=== PATIENT | male | born 1940 | race Caucasian/White ===

== ENCOUNTER → 2018-10-12 09:19 | Outpatient (CLI) | payer MEDICARE, SELFPAY ==
[2015-04-21 07:43] VITALS: BMI 26.4
[2018-10-12 09:44] LABS: International Normalized Ratio 2.8; Prothrombin Time (Protime)PT. 29.7 SECONDS (11.7-14.9)
== END ==
PROVIDERS: Family Provider Internal Medicine; PCP Internal Medicine; Referring Provider Family Medicine; Visit Provider Family Medicine
DX: I48.92 Unspecified atrial flutter (principal)
CPT/HCPCS: 85610

== ENCOUNTER → 2018-10-22 09:53 | Outpatient (CLI) | payer MEDICARE, SELFPAY ==
[2015-04-21 07:43] VITALS: BMI 26.4
[2018-10-22 10:25] LABS: International Normalized Ratio 3.3; Prothrombin Time (Protime)PT. 34.1 SECONDS (11.7-14.9)
== END ==
PROVIDERS: Family Provider Internal Medicine; PCP Internal Medicine; Referring Provider Family Medicine; Visit Provider Family Medicine
DX: I48.92 Unspecified atrial flutter (principal)
CPT/HCPCS: 85610

== ENCOUNTER → 2019-04-09 11:59 | Outpatient (CLI) | payer MEDICARE, OTHER, SELFPAY ==
[2019-03-27 08:29] VITALS: BMI 23.8
[2019-04-09 12:24] LABS: International Normalized Ratio 2.8; Prothrombin Time (Protime)PT. 29.9 SECONDS (11.7-14.9)
== END ==
PROVIDERS: Family Provider Family Medicine; PCP Family Medicine; Referring Provider Family Medicine; Visit Provider Family Medicine
DX: I48.20 Chronic atrial fibrillation, unspecified (principal); I48.4 Atypical atrial flutter
CPT/HCPCS: 85610

== ENCOUNTER → 2019-04-24 09:29 | Outpatient (CLI) | payer MEDICARE, OTHER, SELFPAY ==
[2019-03-27 08:29] VITALS: BMI 23.8
[2019-04-24 09:41] LABS: International Normalized Ratio 2.6; Prothrombin Time (Protime)PT. 27.7 SECONDS (11.7-14.9)
== END ==
PROVIDERS: Family Provider Family Medicine; PCP Family Medicine; Visit Provider Family Medicine
DX: I48.92 Unspecified atrial flutter (principal)
CPT/HCPCS: 85610

== ENCOUNTER 2020-04-01 13:33 | Emergency (ER) | payer MEDICARE, OTHER, SELFPAY ==
[2019-12-03 09:31] VITALS: BMI 23.1
[2020-04-01 13:34] VITALS: BP 149/67; PULSE 82; RESP 18; TEMP 35.7; O2SAT 97; BMI 23.9
--- NOTE | 2020-04-01 14:16 | ED.DCSUM_ITS ---
History of Present Illness Chief Complaint: Complaint Informant: Patient Narrative: 79-year-old male presents with 20 hours of inability urinate. Patient states he is uncircumcised and has been unable to retract the foreskin. He states that he had seen a urologist several years ago and they gave him exercises to do. Unfortunately now he is unable to urinate. He tried to find somebody to see him today but was unable to have successfully came to emergency. He states he feels a lot of pressure at the tip of his penis to urinate. - Past Medical History (1) Atypical atrial flutter Status: Chronic (2) Essential (primary) hypertension Status: Chronic (3) History of hyperlipidemia Status: Chronic (4) Nonobstructive atherosclerosis of coronary artery Status: Chronic (5) Nonrheumatic mitral (valve) insufficiency Status: Chronic (6) Paroxysmal atrial fibrillation Status: Chronic (7) Right bundle branch block (RBBB) Status: Chronic (8) Secondary pulmonary arterial hypertension Status: Chronic Past Medical History - Allergies and Home Meds Allergies/Adverse Reactions: Allergies No Known Allergies Allergy (Verified 04/01/20 13:35) Primary Care Physician: Nic Castro MD [Primary Care Provider] - Prior records reviewed: Yes Surgical History: noncontributory Lives: Spouse/ Significant Other Smoking Status: Never smoker Drugs: None Review of Systems General: Denies: Chills, Fever, Sweats Eyes: Denies: Visual changes - bilaterally, Diplopia ENT: Denies: Rhinorrhea, Sore throat Cardiovascular: Denies: Chest pain, Palpitations Respiratory: Denies: Dyspnea, Cough, Dyspnea on exertion Gastrointestinal: Denies: Abdominal pain, Nausea, Vomiting, Diarrhea, Melena, Hematochezia Genitourinary: Reports: - - Inability to urinate. Denies: Dysuria, Hematuria, Frequency Musculoskeletal: Denies: Back pain, Extremity Pain Skin: Denies: Rash, Wounds Neurological: Denies: Headache, Weakness, Numbness Physical Exam Vital Signs/Narrative: Vital Signs Temp Pulse Resp BP Pulse Ox 04/01/20 13:34 96.2 F L 82 18 149/67 H 97 Inital Vital Signs reviewed: Yes General: Well nourished, Well developed, No Acute Distress Head: Normocephalic, Atraumatic Eyes: Perrl, EOMI ENT: Moist mucous membranes, No rhinorrhea Neck: Supple, Nontender Cardiovascular: Regular rate, Regular rhythm, No murmurs Respiratory: No distress, CTA bilaterally, Chest nontender Abdomen: Soft, Nondistended, Normal bowel sounds, - - Tender palpation over the bladder : - - Patient's foreskin is unable to be retracted. I cannot visualize the urethra. There is no leakage of urine. Back: Nontender, Normal Inspection Extremities: Nontender, No edema Skin: Normal color, No rash Neurological: Alert, Oriented x3, Cranial nerves II-XII grossly intact, Normal Strength, Normal Sensation Psychological: Normal affect, Normal Mood Diagnostic/Tx/Re-eval Laboratory Last Values WBC 8.2 K/mm3 (4.4-11.0) 04/01/20 14:30 RBC 4.62 M/mm3 (4.6-6.2) 04/01/20 14:30 Hgb 14.8 g/dL (13.0-16.5) 04/01/20 14:30 Hct 44.3 % (40-54) 04/01/20 14:30 MCV 95.9 fL (80-94) H 04/01/20 14:30 MCH 32.0 pg (27.0-32.0) 04/01/20 14:30 MCHC 33.4 g/dL (32-36) 04/01/20 14:30 RDW Std Deviation 46.4 fl (35.1-43.9) H 04/01/20 14:30 RDW Coeff of Lexus 13.2 % (11.6-14.6) 04/01/20 14:30 Plt Count 186 K/mm3 (150-450) 04/01/20 14:30 MPV 10.2 fl (6.2-12.0) 04/01/20 14:30 Immature Gran % (Auto) 0.600 % (0.0-0.9) 04/01/20 14:30 Neut % (Auto) 73.2 % (47-70) H 04/01/20 14:30 Lymph % (Auto) 16.2 % (19-41) L 04/01/20 14:30 Trigg % (Auto) 6.0 % (0-10) 04/01/20 14:30 Eos % (Auto) 3.8 % (0-5) 04/01/20 14:30 Baso % (Auto) 0.2 % (0-1) 04/01/20 14:30 Absolute Neuts (auto) 6.0 X10^3/uL (2.0-7.7) 04/01/20 14:30 Absolute Lymphs (auto) 1.33 X10^3/uL (0.83-4.51) 04/01/20 14:30 Nucleated RBC % 0 % (0-5) 04/01/20 14:30 PT 22.2 SECONDS (11.7-14.9) H 04/01/20 14:30 INR 2.0 04/01/20 14:30 Sodium 140 mmol/L (136-145) 04/01/20 14:30 Potassium 4.2 mmol/L (3.5-5.1) 04/01/20 14:30 Chloride 106 mmol/L (98-107) 04/01/20 14:30 Carbon Dioxide 30.0 mmol/L (21.0-32.0) 04/01/20 14:30 Anion Gap 4 (5-15) L 04/01/20 14:30 BUN 28 mg/dL (7-18) H 04/01/20 14:30 Creatinine 1.25 mg/dL (0.70-1.30) 04/01/20 14:30 Estim Creat Clear Calc 46.35 ml/min 04/01/20 14:30 Est GFR (MDRD) Af Amer 71 mL/min (>60) 04/01/20 14:30 Est GFR (MDRD) Non-Af 59 mL/min (>60) L 04/01/20 14:30 BUN/Creatinine Ratio 22.4 RATIO (10-20) H 04/01/20 14:30 Glucose 135 mg/dL (74-106) H 04/01/20 14:30 Calcium 9.5 mg/dL (8.5-10.1) 04/01/20 14:30 - Medical Decision Making He has a distended bladder. He is unable to urinate. Our urologist is out of town until April. Basic blood work shows a normal creatinine. INR is 2.2. Normal white count. As I do not have the ability to definitively treat him here I am looking to transfer him. [facility] was contacted initially. He has been accepted by Dr. Zapata. ED Disposition - Plan for ED Patient: Disposition: [facility] Diagnosis: acute urinary retention due to phimosis Referrals: Nic Castro MD [Primary Care Provider] -
[2020-04-01 14:42] VITALS: BP 147/95; PULSE 87; RESP 20; TEMP 37.3; O2SAT 98
[2020-04-01 14:46] LABS: Absolute Lymphocyte Count 1.33 X10^3/uL (0.83-4.51); Basophil# 0.02 X10^3/uL; Basophil% 0.2 % (0-1); Eosinophil# 0.31 X10^3/uL; Eosinophils% 3.8 % (0-5); Hematocrit 44.3 % (40-54); Hemoglobin 14.8 g/dL (13.0-16.5); Lymphocyte # 1.33 X10^3/ul (4.0); Lymphocyte % 16.2 % (19-41); Mean Corp Hgb Conc 33.4 g/dL (32-36); Mean Corpuscular Volume 95.9 fL (80-94); Mean Platelet Vol. 10.2 fl (6.2-12.0); Monocyte# 0.49 X10^3/uL; NRBC Flagged by Analyzer 0 % (0-5); Neutrophil # 6.02 X10^3/uL (2.7-7.7); Neutrophil % 73.2 % (47-70); Platelet Count 186 K/mm3 (150-450); RBC Distribution Width CV 13.2 % (11.6-14.6); RBC Distribution Width SD 46.4 fl (35.1-43.9); Red Blood Count 4.62 M/mm3 (4.6-6.2); White Blood Count 8.2 K/mm3 (4.4-11.0)
[2020-04-01 14:49] LABS: Prothrombin Time (Protime)PT. 22.2 SECONDS (11.7-14.9)
[2020-04-01 14:51] LABS: Anion Gap 4 (5-15); BUN 28 mg/dL (7-18); BUN/Creat Ratio 22.4 RATIO (10-20); Calcium,Total 9.5 mg/dL (8.5-10.1); Chloride 106 mmol/L (98-107); Creatinine, Serum 1.25 mg/dL (0.70-1.30); EST Glomerular Filtration Rate 59 mL/min (>60); Est Glom Filt Rate - Afr Amer 71 mL/min (>60); Estimated Creatinine Clearance 46.35 ml/min; Glucose 135 mg/dL (74-106); Potassium 4.2 mmol/L (3.5-5.1); Sodium Level 140 mmol/L (136-145)
[2020-04-01 16:12] VITALS: BP 135/71; PULSE 70; RESP 16; TEMP 36.1; O2SAT 97
--- NOTE | 2020-04-01 16:33 | NURSING ---
CALLED [facility], ETA IS 30 MIN
[2020-04-01 17:07] VITALS: BP 129/75; PULSE 79; RESP 18; O2SAT 99
== END 2020-04-01 17:07 | disposition short-term general hospital (02) ==
PROVIDERS: Emergency Provider Emergency Medicine; PCP Family Medicine
DX: R33.8 Other retention of urine (principal); N47.1 Phimosis
CPT/HCPCS: 80048; 85025; 85610; 99285

== ENCOUNTER → 2020-06-22 10:02 | Outpatient (CLI) | payer MEDICARE, OTHER, SELFPAY ==
[2020-06-22 10:35] LABS: Prothrombin Time (Protime)PT. 21.8 SECONDS (11.7-14.9)
== END ==
PROVIDERS: PCP Family Medicine; Visit Provider Family Medicine
DX: I48.20 Chronic atrial fibrillation, unspecified (principal)
CPT/HCPCS: 85610

== ENCOUNTER → 2020-09-07 09:30 | Outpatient (CLI) | payer MEDICARE, OTHER, SELFPAY ==
[2020-09-07 09:48] LABS: International Normalized Ratio 2.2; Prothrombin Time (Protime)PT. 23.2 SECONDS (11.7-14.9)
== END ==
PROVIDERS: PCP Family Medicine; Referring Provider Family Medicine; Visit Provider Family Medicine
DX: I48.20 Chronic atrial fibrillation, unspecified (principal)
CPT/HCPCS: 85610

== ENCOUNTER → 2020-09-11 15:21 | Outpatient (CLI) | payer MEDICARE, OTHER, SELFPAY ==
[2020-09-11 14:12] VITALS: BMI 25.8
--- NOTE | 2020-09-11 15:24 | RAD_ITS ---
STUDY: X-RAY CHEST REASON FOR EXAM: Male, 79 years old. dyspnea on exertion TECHNIQUE: 2 views COMPARISON: None. FINDINGS: Discrete bibasilar fibrotic changes greater at the right lung base with an elevation of the right diaphragm. Otherwise negative for major consolidation, focal atelectasis or pleural effusion. Mild cardiomegaly. Status post prior midline sternotomy. Normal visualized pulmonary arteries. There is atherosclerotic calcification of the aortic arch with tortuosity. There are diffuse degenerative changes of the visualized thoracic spine. Status post right shoulder arthroplasty. Multiple prior healed right rib fractures. There is no demonstrated abnormality of the visualized soft tissue structures of the upper abdomen. RAD/Chest PA and Lateral IMPRESSION: Chronic fibrotic bibasilar lung changes right greater than left with an elevated right diaphragm. Mild cardiomegaly status post prior midline sternotomy without evidence of pulmonary venous congestion or pleural effusion. Atherosclerotic changes of the thoracic aorta. Status post right shoulder arthroplasty. Multiple prior healed right rib fractures. Electronically Signed: Irma Beebe MD at 16:26 EDT , Service support ,
[2020-09-11 17:01] LABS: BNP,B-Type NATRIURETIC PEPTIDE 48.3 pg/mL (0-100)
== END ==
PROVIDERS: PCP Family Medicine; Referring Provider Physician Assistant Medical; Visit Provider Physician Assistant Medical
DX: R06.00 Dyspnea, unspecified (principal); I48.0 Paroxysmal atrial fibrillation; I10 Essential (primary) hypertension; Z98.890 Other specified postprocedural states
CPT/HCPCS: 36415; 71046; 83880

== ENCOUNTER → 2020-09-25 07:56 | Outpatient (CLI) | payer MEDICARE, OTHER, SELFPAY ==
[2020-09-11 14:12] VITALS: BMI 25.8
--- NOTE | 2020-09-25 07:58 | ECHOD_ITS ---
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 Exam performed in department. Left Ventricle Normal LV size. Mild concentric left ventricular hypertrophy. Left ventricular systolic function is normal. The estimated ejection fraction is 55 %. No regional wall motion abnormalities noted. Right Ventricle Normal RV size. Normal systolic function. Atria The left atrium is moderately enlarged. Normal right atrium. Mitral Valve Trivial eccentric mitral valve insufficiency. Status post mitral valve repair with annuloplasty ring. Tricuspid Valve Normal tricuspid valve. Mild to moderate (1-2+) tricuspid valve insufficiency. Pulmonary artery systolic pressure is 56 mmHg. Moderate pulmonary hypertension. Aortic Valve Trisinus/trileaflet aortic valve. Trivial aortic valve insufficiency. Pulmonic Valve Normal pulmonic valve. Mild (1+) pulmonic valve insufficiency. Great Vessels Normal aortic root. The pulmonary artery is normal size. Pericardium/Pleural No pericardial effusion. MMode/2D Measurements & Calculations LVIDd: 4.4 cm IVSd: 1.3 cm LA dimension: 5.3 cm LVIDs: 2.8 cm LVPWd: 1.3 cm RVDd: 5.2 cm FS: 37.2 % LAV(MOD-bp): 106.8 ml LA A4 area: 29.1 cm2 RA A4 area: 19.8 cm2 LAV(MOD-bp) Indexed: 54.7 ml/m2 LAV(MOD-sp2): 103.7 ml LAV(MOD-sp4): 103.4 ml Doppler Measurements & Calculations MV E max maurilio: 194.9 cm/sec Lat Peak E' Maurilio: 5.3 cm/sec Med Peak E' Maurilio: 7.2 cm/sec E/E' lat: 36.8 E/E' med: 27.0 Ao V2 max: 115.4 cm/sec AI max maurilio: 406.9 cm/sec LV V1 max: 104.2 cm/sec Ao max P.3 mmHg AI max P.2 mmHg LV V1 max P.3 mmHg AI dec slope: 202.9 cm/sec2 AI P1/2t: 587.3 msec PA V2 max: 105.0 cm/sec TR max maurilio: 357.9 cm/sec TR max P.2 mmHg ECHO/Echo Complete Interpretation Summary Status post mitral valve repair with annuloplasty ring. Normal LV size. Left ventricular systolic function is normal. The estimated ejection fraction is 55 %. Mild concentric left ventricular hypertrophy. Pulmonary artery systolic pressure is 56 mmHg. Moderate pulmonary hypertension. Ordering Physician: Rosalee Mcgrath Referring Physician: Babatunde Castro Performed By: Pio Novoa RCS
== END ==
PROVIDERS: PCP Family Medicine; Referring Provider Physician Assistant Medical; Visit Provider Physician Assistant Medical
DX: I34.0 Nonrheumatic mitral (valve) insufficiency (principal); R06.00 Dyspnea, unspecified; I48.0 Paroxysmal atrial fibrillation; I10 Essential (primary) hypertension; Z98.890 Other specified postprocedural states
CPT/HCPCS: 93306

== ENCOUNTER → 2020-09-30 08:51 | Outpatient (CLI) | payer MEDICARE, OTHER, SELFPAY ==
[2020-09-11 14:12] VITALS: BMI 25.8
== END ==
PROVIDERS: PCP Family Medicine; Referring Provider Physician Assistant Medical; Visit Provider Physician Assistant Medical
DX: R06.00 Dyspnea, unspecified (principal); I48.0 Paroxysmal atrial fibrillation; R00.1 Bradycardia, unspecified
CPT/HCPCS: 93225; 93226

== ENCOUNTER → 2021-09-08 | Outpatient (CLI) | payer MEDICARE, OTHER, SELFPAY ==
--- NOTE | 2021-09-08 13:48 | STRESSREP_ITS ---
Stress Test Report Pharmacologic myocardial perfusion stress test. 80-year-old male with a history of dyspnea on exertion. Stress protocol: Resting EKG demonstrates atrial fibrillation with a rate of 55 bpm and incomplete right bundle branch block is noted. 0.4 mg of regadenoson was infused per usual protocol followed by rapid intravenous saline flush injection continuous EKG monitoring was performed. The maximum heart rate was 80 bpm which was 57% of max impact at heart rate the maximum workload was 1 metabolic equivalents. At rest there were no ST or T wave changes noted to suggest abnormal flow reserve and at peak infusion nonspecific ST changes were noted with did not meet the criteria for ischemia. No clinical angina was noted. The final blood pressure was 142/82 mmHg. Myocardial perfusion protocol. 12.0 mCi of technetium 99m sestamibi was injected at rest. 0.4 mg of regadenoson was infused per usual protocol. At peak infusion 34.5 mCi of technetium 99m sestamibi was injected stress images were obtained stress and rest images were reconstructed and compared in the short axis vertical long and horizontal long axis. Gated images were also obtained to Perfusion SPECT analysis: Review of the stress images demonstrate normal uptake of tracer noted in all areas of the myocardium. The resting images similarly demonstrated normal u ptake of tracer noted in all areas of the myocardium. No areas of reversibility are noted to suggest ischemia. Gated SPECT analysis: The gated ejection fraction is 70%. Conclusion: Normal pharmacologic myocardial perfusion stress test. Preserved ejection fraction.
== END | disposition home or self-care (01) ==
PROVIDERS: PCP Family Medicine; Referring Provider Internal Medicine Cardiovascular Disease; Visit Provider Internal Medicine Cardiovascular Disease
DX: R06.00 Dyspnea, unspecified (principal)
CPT/HCPCS: 78452; 93017; A9500; A4216; J2785

== ENCOUNTER → 2021-09-17 | Outpatient (CLI) | payer MEDICARE, OTHER, SELFPAY | END | disposition home or self-care (01) | LOC: PSN 08:56 | PROVIDERS: PCP Family Medicine; Referring Provider Internal Medicine Cardiovascular Disease; Visit Provider Internal Medicine Cardiovascular Disease | DX: I48.19 Other persistent atrial fibrillation (principal) | CPT/HCPCS: 93225; 93226 ==

== ENCOUNTER → 2022-02-14 | Outpatient (CLI) | payer MEDICARE, OTHER, SELFPAY ==
[2022-02-14 13:27] LABS: International Normalized Ratio 2.2; Prothrombin Time (Protime)PT. 24.4 SECONDS (11.7-14.9)
== END | disposition home or self-care (01) ==
LOC: LABSPEC 13:09
PROVIDERS: PCP Family Medicine; Visit Provider Family Medicine
DX: I48.20 Chronic atrial fibrillation, unspecified (principal)
CPT/HCPCS: 85610

== ENCOUNTER → 2022-02-15 | Outpatient (CLI) | payer MEDICARE, OTHER, SELFPAY ==
[2022-02-15 10:09] LABS: International Normalized Ratio 2.3; Prothrombin Time (Protime)PT. 24.6 SECONDS (11.7-14.9)
== END | disposition home or self-care (01) ==
PROVIDERS: PCP Family Medicine; Referring Provider Family Medicine; Visit Provider Family Medicine
DX: I48.20 Chronic atrial fibrillation, unspecified (principal)
CPT/HCPCS: 85610

== ENCOUNTER → 2022-03-23 | Outpatient (CLI) | payer MEDICARE, OTHER, SELFPAY ==
[2022-03-23 10:57] LABS: International Normalized Ratio 2.2; Prothrombin Time (Protime)PT. 23.7 SECONDS (11.7-14.9)
== END | disposition home or self-care (01) ==
LOC: LABSPEC 10:36
PROVIDERS: PCP Family Medicine; Visit Provider Family Medicine
DX: Z51.81 Encounter for therapeutic drug level monitoring (principal); Z79.01 Long term (current) use of anticoagulants
CPT/HCPCS: 85610

== ENCOUNTER 2023-09-14 17:29 | Emergency (ER) | payer MEDICARE, SELFPAY ==
[2023-09-14 17:30] VITALS: PULSE 84; RESP 18; TEMP 36.5; O2SAT 98
--- NOTE | 2023-09-14 17:58 | RAD_ITS ---
STUDY: X-RAY - RIGHT KNEE REASON FOR EXAM: Male, 82 years old. Injury/Pain TECHNIQUE: 3 view(s) of the knee. COMPARISON: None. FINDINGS: Normal visualized distal femur. Normal visualized proximal tibia and fibula. Normal proximal tibiofibular articulation. Chondrocalcinosis of the menisci. Slight lateral subluxation of the patella. Suprapatellar ossific/calcific radiodensities. Slight lateral subluxation of the tibia. There is mild degenerative arthrosis of the medial femorotibial compartment. There is mild degenerative arthrosis of the lateral femorotibial compartment. There is moderate degenerative arthrosis of the patellofemoral articulation. Moderate suprapatellar effusion. RAD/Knee 4 or More Views IMPRESSION: Moderate effusion. Suprapatellar ossific densities. Moderate degenerative changes as above. Electronically Signed: Brannon Martínez MD at 19:06 EDT ,
--- NOTE | 2023-09-14 17:59 | EDS_ITS ---
HPI History of Present Illness HPI Narrative: Patient presents with right knee pain that began after a fall 2 days ago. Patient states he lost his balance and fell forward. Patient states he injured his right knee at that time. Patient states his pain is worse with bending his knee. Patient denies any paresthesias or weakness. Patient describes his pain as dull. Patient states he has also been having some pain in his right foot over the past couple weeks. Patient states it is worse with weightbearing. Patient does not remember any trauma to his foot. Patient denies any other injuries. Chief Complaint: Lower Extremity Injury Informant: patient Occured/Mechanism Mechanism/Context: Yes fall Onset/Context/Timing Onset: Days (2) Context: Sudden Onset Timing: Continuous Quality of Pain: Dull Location: Right knee Worsened by: Bending Relieved by: Rest Associated Symptoms Associated Symptoms: Negative for Parasthesia, Weakness or Loss of Funtion [facility] Medical History Subconjunctival hemorrhage of left eye Atypical atrial flutter Secondary pulmonary arterial hypertension Osteoarthritis Hypothyroidism Hypertrophy of prostate without urinary obstruction Bradycardia Right bundle branch block (RBBB) Essential (primary) hypertension History of hyperlipidemia Nonobstructive atherosclerosis of coronary artery Nonrheumatic mitral (valve) insufficiency Home Medications ?Medication ?Instructions ?Recorded ?Last Taken ?Type levothyroxine 88 mcg tablet 88 mcg PO DAILY 04/13/15 04/21/15 History 88 MCG lisinopril 5 mg tablet 2.5 mg PO QHS 04/13/15 04/20/15 History 5 MG warfarin 4 mg tablet See Rx Instructions PO DAILY 10/23/20 Unknown History metoprolol succinate 50 mg 50 mg PO DAILY #90 tabs 09/28/21 Unknown Rx tablet,extended release 24 hr tamsulosin 0.4 mg capsule 0.4 mg PO QHS 08/22/22 Unknown History hydrocodone-acetaminophen 5-325mg 1 tab PO Q6H PRN PRN Pain 3 days 09/14/23 Unknown Rx 5mg-325mg #10 TABLETS trospium 60 mg capsule,extended 60 mg PO DAILY overactive bladder 09/14/23 Unknown History release 24 hr Allergy/AdvReac Type Severity Reaction Status Date / Time No Known Allergies Allergy Verified 09/14/23 17:30 Family History Mother Heart disease Father Cancer leukemia Surgical History History of reverse total replacement of right shoulder joint H/O bilateral inguinal hernia repair History of cardioversion (12/13/12) History of left heart catheterization (02/23/07) History of mitral valve repair (02/28/07) Social History Smoking Status: Never smoker alcohol intake: never substance use type: does not use caffeine: No ROS ROS ED Constitutional Constitutional ED: Denies chills or fever(s) Eyes Eyes: Denies blurry vision or change in vision ENT ENT ED: Denies rhinorrhea or sore throat Cardiovascular Cardiovascular: Denies chest pain or palpitations Respiratory/Chest Respiratory/Chest: Denies cough or dyspnea Gastrointestinal Gastrointestinal: Denies nausea or vomiting Genitourinary Genitourinary ED: Denies dysuria or hematuria Musculoskeletal Musculoskeletal: Reports back pain; Denies neck pain Integumentary Denies abscess or rash Neurologic Neurologic: Denies headache(s) or weakness Allergic/Immunologic Allergic/Immunologic ED: Denies mouth swelling or urticaria EXAM Physical Exam Const Vital Signs: 09/14/23 17:30 09/14/23 19:40 Temperature 97.7 F L 99.6 F H Temperature Source Temporal Oral Pulse Rate 84 75 Respiratory Rate 18 16 Blood Pressure 129/75 H Blood Pressure Mean 93 Pulse Ox 98 98 Oxygen Delivery Method Room Air Room Air Positive well nourished and well developed General Appearance ED: well developed and NAD HEENT Reports moist mucous membranes Neck full ROM and supple Extremity Extremity Narrative: There is tenderness and an effusion over the right knee. Range of motion was limited in all motions of the right knee secondary to pain. Patient is unable to extend his knee and hold his lower leg off of the bed. There is no obvious deformity noted. There is also mild tenderness over the dorsum of the right foot. There are some edema noted. There is no deformity noted. Pedal pulses are equal bilaterally. Sensation was intact to light touch bilaterally in the lower extremities. Neuro oriented x3, CN's II-XII intact bilaterally, moves all extremities and no sensory deficits noted Sensorium / Orientation: alert Motor Exam: strength 5/5 throughout MDM MDM MDM Narrative Medical decision making narrative: Differential diagnosis includes patella fracture, quadricep tendon tear, internal derangement of the right knee, foot fracture, dislocation, and sprain. X-rays of the right knee and right foot will be obtained to assess for fracture and dislocation. Radiography Diagnostic Testing: Clinical Impression(s) from Imaging Studies Knee X-Ray 09/14/23 17:58 IMPRESSION: Moderate effusion. Suprapatellar ossific densities. Moderate degenerative changes as above. Electronically Signed: Brannon Martínez MD at 19:06 EDT , Foot X-Ray 09/14/23 18:05 IMPRESSION: Questionable avulsion fracture posterior process of the talus versus dystrophic calcification. Other incidental degenerative findings as above. Electronically Signed: Brannon Martínez MD at 19:02 EDT Reading Location ID and State: [employer] / [place] Tel , Service support , X-rays of the right knee were obtained. There are 4 views. On my independent interpretation, there is no acute fracture noted. There are degenerative changes noted. There is a moderate effusion. Radiologist also interpreted the x-rays and agrees. X-rays of the right foot were obtained. There are 3 views. There is a questionable avulsion fracture of the posterior process of the talus. There are degenerative changes noted. Radiologist also interpreted the x-rays and agrees. Treatment and Re-Evaluation Narrative: Patient was given a dose of [place] here. Patient was still unable to extend his knee against gravity. Case was discussed with Dr. Balbir Everett from orthopedics. He recommended placing the patient in a knee immobilizer. Patient states he has crutches at home. He wants the patient to call his office tomorrow to set up a follow-up appointment. He states that the patient would also need to follow-up with his primary care physician and automated access systems technician to come off of his Coumadin if he would want surgery to repair his quadricep tendon. Patient was given a prescription for [place]. Patient was instructed to use ice to his right knee. Patient was instructed to return if worse in any way. Patient understood and was agreeable with the plan. All questions were answered. Discharge Plan Triage Chief Complaint: Lower Extremity Injury ED Provider: Rolly Ruiz Dx/Rx/DC Orders Clinical Impression: Quadriceps tendon rupture, Fall, Avulsion fracture of right talus Instructions: ED Quadriceps Tendon Rupture Prescriptions: New hydrocodone-acetaminophen 5-325 mg tablet 1 tab PO Q6H PRN PRN (Reason: Pain) 3 Days Qty: 10 0RF No Action tamsulosin 0.4 mg capsule 0.4 mg PO QHS levothyroxine 88 MCG tablet 88 mcg PO DAILY Patient Comments: thyroid lisinopril 5 MG tablet 2.5 mg PO QHS Patient Comments: blood pressure warfarin 4 mg tablet See Rx Instructions PO DAILY Rx Instructions: 2 mg on Mondays and Fridays, 4 mg all other day or as directed for dose changes PO daily; Managed by Dr. Jaramillo trospium 60 mg capsule,extended release 24hr 60 mg PO DAILY metoprolol succinate 50 mg tablet extended release 24 hr 50 mg PO DAILY Qty: 90 3RF Primary Care Provider: Nic Castro Referrals: Nic Castro MD [Primary Care Provider] - 3-5 Days Balbir Everett MD [Med Staff - Active Staff] - As soon as possible (Call tomorrow to schedule an appointment) Print Language: Hungarian Disposition Disposition: Home, Self Care
--- NOTE | 2023-09-14 18:05 | RAD_ITS ---
STUDY: X-RAY - RIGHT FOOT CLINICAL: Male, 82 years old. Injury/Pain TECHNIQUE: 3 view(s) of the foot. COMPARISON: None. FINDINGS: Normal talus, calcaneus, and tarsal bones. Normal visualized subtalar, talonavicular, calcaneocuboid, tarsal and tarsometatarsal articulations. Spurring dorsal midfoot. Normal metatarsi. Normal metatarsophalangeal joint of the great toe. Normal tibial and fibular sesamoid bones. Normal interphalangeal joint of the great toe. Normal phalanges of the great toe. Cystic change distal phalanx digit. Ossific density posterior to the talus. Normal second through fifth metatarsophalangeal joints. Normal interphalangeal joints and phalanges of the lesser toes. The soft tissue structures are unremarkable. RAD/Foot min 3 Views IMPRESSION: Questionable avulsion fracture posterior process of the talus versus dystrophic calcification. Other incidental degenerative findings as above. Electronically Signed: Brannon Martínez MD at 19:02 EDT ,
[2023-09-14] MEDS: HYDROcodone Bitartrate/Apap 5/325 Tablet PO (19:36)
[2023-09-14 19:39] VITALS: BMI 23.8
[2023-09-14 19:40] VITALS: BP 129/75; PULSE 75; RESP 16; TEMP 37.6; O2SAT 98
[2023-09-14 22:24] VITALS: BP 129/75; PULSE 75; RESP 16; TEMP 37.6; O2SAT 98
== END 2023-09-14 22:30 | disposition home or self-care (01) ==
PROVIDERS: Emergency Provider Emergency Medicine; PCP Family Medicine; Visit Provider Emergency Medicine
DX: S76.111A Strain of right quadriceps muscle, fascia and tendon, initial encounter (principal); S92.151A Displaced avulsion fracture (chip fracture) of right talus, initial encounter for closed fracture; I25.10 Atherosclerotic heart disease of native coronary artery without angina pectoris; E03.9 Hypothyroidism, unspecified; I10 Essential (primary) hypertension; Z79.899 Other long term (current) drug therapy; Z79.01 Long term (current) use of anticoagulants; W19.XXXA Unspecified fall, initial encounter
CPT/HCPCS: 73564; 73630; 99283; A4216

== ENCOUNTER → 2023-10-11 | Outpatient (CLI) | payer MEDICARE, SELFPAY ==
--- NOTE | 2023-10-11 07:55 | ECHOD_ITS ---
Reason For Study: MV Repair, PHTN Procedure This was a 2D Doppler, Color Flow transthoracic echocardiogram. Exam performed in department. Left Ventricle Normal LV size. Mild concentric left ventricular hypertrophy. The left ventricular ejection fraction is 55 %. No regional wall motion abnormalities noted. Right Ventricle Mildly dilated right ventricle. Mild to moderate global right ventricular systolic dysfunction. Atria The left atrium is severely enlarged. The right atrium is mildly enlarged. Mitral Valve Status post mitral valve repair with annuloplasty ring. Tricuspid Valve Normal tricuspid valve. Moderate (2+) tricuspid valve insufficiency. Pulmonary artery systolic pressure is 64 mmHg. Moderate pulmonary hypertension. Aortic Valve Trisinus/trileaflet aortic valve. Mild (1+) aortic valve insufficiency. Pulmonic Valve Normal pulmonic valve. Great Vessels Normal aortic root. The pulmonary artery is normal size. The inferior vena cava is dilated. and partially collapses. Pericardium/Pleural No pericardial effusion. MMode/2D Measurements & Calculations LVIDd: 4.6 cm IVSd: 1.3 cm Ao root diam: 3.4 cm LVIDs: 2.9 cm LVPWd: 1.3 cm RVDd: 4.4 cm FS: 36.7 % LAV(MOD-bp): 106.8 ml LVAd ap4: 32.9 cm2 LVAd ap2: 32.9 cm2 LAV(MOD-bp) Indexed: 56.2 ml/m2 LVLd ap4: 8.1 cm LVLd ap2: 8.5 cm LAV(MOD-sp2): 81.9 ml EDV(MOD-sp4): 114.8 ml EDV(MOD-sp2): 107.5 ml LAV(MOD-sp4): 135.2 ml EDV(sp4-el): 113.5 ml EDV(sp2-el): 109.0 ml LVAs ap4: 19.6 cm2 LVAs ap2: 21.4 cm2 LVLs ap4: 7.3 cm LVLs ap2: 7.6 cm ESV(MOD-sp4): 44.2 ml ESV(MOD-sp2): 51.9 ml ESV(sp4-el): 44.7 ml ESV(sp2-el): 50.7 ml EF(MOD-sp4): 61.4 % EF(MOD-sp2): 51.7 % EF(sp4-el): 60.6 % SV(MOD-sp4): 70.5 ml SV(MOD-sp2): 55.6 ml SV(sp4-el): 68.8 ml LA dimension(2D): 5.7 cm LA A4 area: 33.3 cm2 RA A4 area: 22.7 cm2 TAPSE: 2.0 cm Doppler Measurements & Calculations MV E max maurilio: 171.0 cm/sec Lat Peak E' Maurilio: 10.5 cm/sec Med Peak E' Maurilio: 9.5 cm/sec E/E' lat: 16.2 E/E' med: 17.9 MV V2 max: 197.4 cm/sec MV P1/2t max maurilio: 158.2 cm/sec Ao V2 max: 102.5 cm/sec MV max P.7 mmHg MV P1/2t: 167.5 msec Ao max P.2 mmHg MV V2 mean: 92.7 cm/sec MV dec slope: 276.6 cm/sec2 Ao V2 mean: 75.6 cm/sec MV mean P.5 mmHg Ao mean P.5 mmHg MV V2 VTI: 58.0 cm MVA(P1/2t): 1.3 cm2 Ao V2 VTI: 25.4 cm AV (velocity ratio): 0.74 AI max maurilio: 318.5 cm/sec LV V1 max: 72.0 cm/sec PA V2 max: 96.8 cm/sec AI max P.6 mmHg LV V1 max P.1 mmHg PA V2 mean: 62.4 cm/sec AI dec slope: 118.7 cm/sec2 LV V1 mean P.2 mmHg AI P1/2t: 785.6 msec LV V1 mean: 52.2 cm/sec LV V1 VTI: 18.7 cm TR max maurilio: 382.1 cm/sec TR max P.4 mmHg ECHO/Echo Complete Interpretation Summary Normal LV size. Mild concentric left ventricular hypertrophy. Status post mitral valve repair with annuloplasty ring. The left ventricular ejection fraction is 55 %. Moderate (2+) tricuspid valve insufficiency. Pulmonary artery systolic pressure is 64 mmHg. Moderate pulmonary hypertension. Ordering Physician: Rosalee cMgrath Referring Physician: Babatunde Castro Performed By: Therese Connell, TATUMCS, RVT
== END | disposition home or self-care (01) ==
PROVIDERS: PCP Family Medicine; Referring Provider Physician Assistant Medical; Visit Provider Physician Assistant Medical
DX: I27.21 Secondary pulmonary arterial hypertension (principal); Z98.890 Other specified postprocedural states
CPT/HCPCS: 93306

== ENCOUNTER 2024-03-25 11:58 | Emergency (ER) | payer MEDICARE, SELFPAY ==
[2024-03-25 12:01] VITALS: BP 107/72; PULSE 94; RESP 20; TEMP 36.6; O2SAT 94; BMI 23.3
[2024-03-25 12:39] LABS: Absolute Lymphocyte Count 1.38 X10^3/uL (0.83-4.51); Absolute Neutrophil Count 8.2 X10^3/uL (2.0-7.7); Basophil# 0.02 X10^3/uL; Basophil% 0.2 % (0-1); Eosinophil# 0.04 X10^3/uL; Eosinophils% 0.4 % (0-5); Hematocrit 33.3 % (40-54); Hemoglobin 10.8 g/dL (13.0-16.5); Lymphocyte # 1.38 X10^3/ul (0.83-4.51); Lymphocyte % 12.5 % (19-41); Mean Corp Hgb Conc 32.4 g/dL (32-36); Mean Corpuscular Hgb 31.9 pg (27.0-32.0); Mean Corpuscular Volume 98.2 fL (80-94); Mean Platelet Vol. 9.3 fl (6.2-12.0); Monocyte# 1.14 X10^3/uL; Monocyte% 10.3 % (0-10); NRBC Flagged by Analyzer 0 % (0-5); Neutrophil # 8.21 X10^3/uL (2.7-7.7); Neutrophil % 74.3 % (47-70); Platelet Count 288 K/mm3 (150-450); RBC Distribution Width CV 13.5 % (11.6-14.6); RBC Distribution Width SD 48.6 fl (35.1-43.9); Red Blood Count 3.39 M/mm3 (4.6-6.2)
[2024-03-25 12:48] LABS: Prothrombin Time (Protime)PT. 42.9 SECONDS (11.7-14.9)
[2024-03-25 12:50] LABS: International Normalized Ratio 4.6
--- NOTE | 2024-03-25 13:01 | VDLE_ITS ---
Reason For Study: Left leg swelling RIGHT LEFT GSV is normal. GSV is normal. CFV is compressible, spontaneous, phasic, CFV is compressible, spontaneous, phasic, competent and demonstrates normal competent, and demonstrates normal augmentation. augmentation. FV is compressible, spontaneous, phasic, FV is compressible, spontaneous, phasic, competent and demonstrates normal competent and demonstrates normal augmentation. augmentation. POP V is compressible, spontaneous, phasic, POP V is compressible, spontaneous, phasic, competent and demonstrates normal competent and demonstrates normal augmentation. augmentation. T/P Trunk is compressible. T/P Trunk is compressible. PTV is compressible. PTV is compressible. RT PerV is compressible. LT PerV is compressible. Procedure This is a venous duplex using B-mode, color flow and spectral Doppler. Exam performed portable in ED. A preliminary report was called and/or faxed to Dr. Lowe. VL/Venous Duplex US - Ernst Extrem Interpretation Summary Deep veins of the bilateral lower extremities are patent and compressible segme ntally. There is no evidence of bilateral lower extremity deep vein thrombosis. The bilateral great saphenous veins appear patent and compressible segmentally. Ordering Physician: Mario Alberto Lowe Referring Physician: Babatunde Castro Performed By: Gracie Morales RVT
[2024-03-25 13:03] LABS: Anion Gap 6 (5-15); BUN 34 mg/dL (7-18); BUN/Creat Ratio 29.3 RATIO (10-20); Calcium,Total 9.9 mg/dL (8.5-10.1); Chloride 104 mmol/L (98-107); Creatinine, Serum 1.16 mg/dL (0.70-1.30); EST Glomerular Filtration Rate 64 mL/min (>60); Est Glom Filt Rate - Afr Amer 77 mL/min (>60); Estimated Creatinine Clearance 48.07 ml/min; Glucose 121 mg/dL (74-106); Potassium 4.4 mmol/L (3.5-5.1); Sodium Level 137 mmol/L (136-145)
[2024-03-25 14:00] VITALS: PULSE 86; RESP 22; O2SAT 92
--- NOTE | 2024-03-25 14:45 | ED.VIS.LOWEX ---
HPI History of Present Illness Chief Complaint: Lower Extremity Injury Informant: patient and family Narrative Narrative: Patient here with spouse and daughter increasing swelling both lower extremities left greater than right over the past 5 days. Patient had pneumonia and finished antibiotics yesterday. Denies orthopnea or any current dyspnea. Denies any pain in the legs. No history of PE or DVT. Denies history of heart failure. Patient on warfarin for history of atrial fibrillation. Contact his PCP office he was placed on diuretics over the weekend no improvement. He recontacted them today that he was sent to the ED for evaluation. [facility] Medical History Subconjunctival hemorrhage of left eye Atypical atrial flutter Secondary pulmonary arterial hypertension Osteoarthritis Hypothyroidism Hypertrophy of prostate without urinary obstruction Bradycardia Right bundle branch block (RBBB) Essential (primary) hypertension History of hyperlipidemia Nonobstructive atherosclerosis of coronary artery Nonrheumatic mitral (valve) insufficiency Home Medications ?Medication ?Instructions ?Recorded ?Last Taken ?Type levothyroxine 88 mcg tablet 88 mcg PO DAILY 04/13/15 04/21/15 History 88 MCG lisinopril 5 mg tablet 2.5 mg PO QHS 04/13/15 04/20/15 History 5 MG warfarin 4 mg tablet See Rx Instructions PO DAILY 10/23/20 Unknown History tamsulosin 0.4 mg capsule 0.4 mg PO QHS 08/22/22 Unknown History hydrocodone-acetaminophen 5-325mg 1 tab PO Q6H PRN PRN Pain 3 days 09/14/23 Unknown Rx 5mg-325mg #10 TABLETS trospium 60 mg capsule,extended 60 mg PO DAILY overactive bladder 09/14/23 Unknown History release 24 hr metoprolol succinate 50 mg 50 mg PO DAILY #90 tabs 12/21/23 Unknown Rx tablet,extended release 24 hr Allergy/AdvReac Type Severity Reaction Status Date / Time No Known Allergies Allergy Verified 03/25/24 12:05 Family History Mother Heart disease Father Cancer leukemia Surgical History History of reverse total replacement of right shoulder joint H/O bilateral inguinal hernia repair History of cardioversion (12/13/12) History of left heart catheterization (02/23/07) History of mitral valve repair (02/28/07) Social History Smoking Status: Never smoker alcohol intake: never substance use type: does not use caffeine: No ROS ROS ED Constitutional Constitutional ED: Denies chills, fever(s) or sweats Eyes Eyes: Denies change in vision ENT ENT ED: Denies dysphagia or sore throat Cardiovascular Cardiovascular: Reports leg edema; Denies chest pain, palpitations or racing heartbeat Respiratory/Chest Respiratory/Chest: Denies cough, dyspnea or dyspnea on exertion Gastrointestinal Gastrointestinal: Denies abdominal pain, diarrhea, nausea or vomiting Genitourinary Genitourinary ED: Denies dysuria, hematuria or urinary frequency Musculoskeletal Musculoskeletal: Denies back pain, extremity pain or neck pain Integumentary Denies rash or wounds Neurologic Neurologic: Denies headache(s), paresthesias or weakness EXAM Physical Exam Const Vital Signs: 03/25/24 12:01 03/25/24 14:00 Temperature 98 F Temperature Source Oral Pulse Rate 94 86 Respiratory Rate 20 H 22 H Blood Pressure 107/72 Blood Pressure Mean 83 Pulse Ox 94 92 Oxygen Delivery Method Room Air Room Air Positive well nourished and well developed General Appearance ED: well developed and NAD HEENT Reports moist mucous membranes normocephalic and atraumatic Eyes EOMs intact bilaterally and conjunctivae normal General Eye ED: Yes normal appearance of both eyes Neck no lymphadenopathy and supple General: Negative for tenderness Chest Wall Chest: Negative for tenderness Resp normal respiratory effort and normal air movement Effort and Inspection: symmetric chest movement; Negative for respiratory distress Cardio regular rate, regular rhythm and no murmurs Peripheral Pulses: pulses 2+ throughout GI normal to inspection, nondistended, normoactive bowel sounds and non-tender Palpation: Negative for guarding or rebound tenderness present Narrative: Ecchymosis around the scrotum bilaterally nontender Back/Spine no CVA tenderness and no thoracic nor lumbar tenderness Extremity normal to inspection Extremity Narrative: Asymmetric swelling lower extremities left greater than right. Soft compartments. No calf tenderness. Pulses are intact distally. General Extremety ED: Yes edema; Negative for tenderness General Extremity: edema Neuro oriented x3 and no sensory deficits noted Sensorium / Orientation: awake and alert Skin no rashes or lesions noted and no wounds MDM MDM MDM Narrative Medical decision making narrative: Interventions / MDM: Differential diagnosis: Peripheral edema, supratherapeutic INR Diagnosis considered but do not suspect: DVT however ultrasound negative. My EKG interpretation: N/A Imaging independently reviewed and interpreted by myself: Bilateral lower extremity ultrasound discussion with orthodontic lab technician negative for DVT. External documents reviewed: N/A Test considered but not ordered:N/A ED course: Patient nontoxic asymmetric leg swelling. DVT studies ordered. Will check labs and INR level. Scrotal ecchymosis without any tenderness. Denied any initial injury however states he had tight underwear, had trouble getting up and it was tugging around the region. INR returned supratherapeutic at 4.6 no active bleeding. Hemoglobin 10.8 today last hemoglobin the system 2019 was 14. Denies rectal bleeding or hematuria. Daughter was able to pull up my chart and reviewed his hemoglobin from October 2023 with 10.4 therefore this is stable. Ultrasound results were negative. Reassured on findings. He will hold his warfarin for tonight and tomorrow. He will discuss with his warfarin clinic for adjustments and continuation of his medication. They do have compression stockings at home for his lower extremities to use. Outpatient follow-up with his doctors. All questions were answered. Re-evaluation: stable Disposition discussed with patient/family/significant other: Patient and family Case discussed with consulting clinician: N/A This note was generated with Gazelle dictation software. It may contain incorrect words, spelling, and punctuation that were not noted in checking the note before signing. Lab Data Labs: Laboratory Results - last 24 hr 03/25/24 12:31 WBC 11.0 RBC 3.39 L Hgb 10.8 L Hct 33.3 L MCV 98.2 H MCH 31.9 MCHC 32.4 RDW Std Deviation 48.6 H RDW Coeff of Lexus 13.5 Plt Count 288 MPV 9.3 Immature Gran % (Auto) 2.300 H Neut % (Auto) 74.3 H Lymph % (Auto) 12.5 L [place] % (Auto) 10.3 H Eos % (Auto) 0.4 Baso % (Auto) 0.2 Absolute Neuts (auto) 8.2 H Absolute Lymphs (auto) 1.38 Nucleated RBC % 0 PT 42.9 H INR 4.6 H* Sodium 137 Potassium 4.4 Chloride 104 Carbon Dioxide 27.0 Anion Gap 6 BUN 34 H Creatinine 1.16 Estim Creat Clear Calc 48.07 Est GFR (MDRD) Af Amer 77 Est GFR (MDRD) Non-Af 64 BUN/Creatinine Ratio 29.3 H Glucose 121 H Calcium 9.9 Discharge Plan Triage Chief Complaint: Lower Extremity Injury ED Provider: Mario Alberto Lowe Dx/Rx/DC Orders Clinical Impression: Edema, peripheral, Anemia, Chronic anticoagulation, Supratherapeutic INR Instructions: Anemia, ED Peripheral Edema, Bilateral Prescriptions: No Action tamsulosin 0.4 mg capsule 0.4 mg PO QHS levothyroxine 88 MCG tablet 88 mcg PO DAILY Patient Comments: thyroid lisinopril 5 MG tablet 2.5 mg PO QHS Patient Comments: blood pressure warfarin 4 mg tablet See Rx Instructions PO DAILY Rx Instructions: 2 mg on Mondays and Fridays, 4 mg all other day or as directed for dose changes PO daily; Managed by Dr. Jaramillo trospium 60 mg capsule,extended release 24hr 60 mg PO DAILY hydrocodone-acetaminophen 5-325 mg tablet 1 tab PO Q6H PRN PRN (Reason: Pain) 3 Days Qty: 10 0RF metoprolol succinate 50 mg tablet extended release 24 hr 50 mg PO DAILY Qty: 90 3RF Primary Care Provider: Nic Castro Referrals: Nic Castro MD [Primary Care Provider] - 3-5 Days Activity Restrictions/Additional Instructions: Lower extremity ultrasounds bilaterally negative for DVT. Her labs hemoglobin 10.8 today compared to your MyChart it was 10.4 in October. This is stable. Your INR is 4.6 today. Hold your warfarin for next 2 days, call your warfarin clinic for discussion when and how to restart your medications. Use compression stockings for your leg swelling. Print Language: Chinese Disposition Disposition: Home, Self Care
== END 2024-03-25 14:57 | disposition home or self-care (01) ==
PROVIDERS: Emergency Provider Emergency Medicine; PCP Family Medicine; Visit Provider Emergency Medicine
DX: M79.89 Other specified soft tissue disorders (principal); R79.1 Abnormal coagulation profile; I25.10 Atherosclerotic heart disease of native coronary artery without angina pectoris; Z79.01 Long term (current) use of anticoagulants
CPT/HCPCS: 80048; 85025; 85610; 93970; 99282; A4216

== ENCOUNTER → 2024-03-28 | Outpatient (CLI) | payer MEDICARE, SELFPAY ==
[2024-03-28 11:54] LABS: Pathologist Comment May follow
[2024-03-28 12:27] LABS: RBC /Synovial Fluid 0.045 10^6/uL (0); Synovial Fld Mononuclear WBC # 3.196 10^3/ul; Synovial Fld Mononuclear WBC % 24.4 %; Synovial Fld Polynuclear WBC # 9.896 10^3/uL; Synovial Fld Polynuclear WBC % 75.6 %
[2024-03-28 12:40] LABS: AUTO B FLUID DILUENT BKGD CT WBC <0.1 RBC <0.01 (W<.1,R<.01); Appearance /Synovial Fluid Cloudy (CLEAR); Color / Synovial Fluid Red (Pale Yellow); Source / Synovial Fluid KNEE; Source- Body Fluid SYNOVIAL; Viscosity / Synovial Fluid Viscous (HIGH)
[2024-03-28 12:42] LABS: CRYSTALS, BODY FLUID NO CRYSTALS SEEN
[2024-03-28 13:22] LABS: Lymph 4 %; Monocyte /Synovial Fluid 28 %; Neutrophil 68 % (0-25)
[2024-03-28 15:54] LABS: Pathologist Review Reviewed
== END | disposition home or self-care (01) ==
PROVIDERS: PCP Family Medicine; Referring Provider Orthopaedic Surgery; Visit Provider Orthopaedic Surgery
DX: M17.11 Unilateral primary osteoarthritis, right knee (principal)
CPT/HCPCS: 87015; 87070; 87075; 87116; 87205; 87206; 89050; 89051; 89060

== ENCOUNTER 2024-11-15 11:01 | Emergency (ER) | payer MEDICARE, SELFPAY ==
[2024-11-15 11:02] VITALS: BP 129/57; PULSE 48; RESP 16; TEMP 36.6; O2SAT 99; BMI 22.6
[2024-11-15 11:29] VITALS: BP 133/87; PULSE 42; RESP 18; TEMP 36.8; O2SAT 98
--- NOTE | 2024-11-15 11:37 | EX.ED.DYSGE1 ---
HPI History of Present Illness Chief Complaint: Wound Narrative Narrative: Chief complaint and HPI: Left fourth toe infection. 83-year-old gentleman with past medical history of atrial flutter/fibrillation on warfarin, hypothyroidism, BPH, HTN presents for evaluation of left fourth toe infection. 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 He states over the last 10 days he has had some mild swelling and redness in his left fourth toe. He states the swelling has improved but there is still mild redness. 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 States that he is yet to see a byproduct engineer. Noticed a sore in between the 4th and 5th toes several days ago. Saw his PCP today. He wrote in for doxycycline however wanted him to be seen in the emergency department for labs and rule out osteomyelitis. Patient denies any fever, chills, nausea, vomiting, chest pain, shortness of breath. Review of systems: See HPI Medications: As listed on the chart Allergies: As listed on the chart PFSH: Per chart Vital signs: As listed on the chart. Reviewed. Physical exam: Gen: A&O x3, NAD Head: Normocephalic, atraumatic Eyes: No sclera icterus, conjunctiva clear ENT: Moist mucous membranes CV: Irregular rhythm, bradycardic, no murmurs, no peripheral edema Resp: Lungs CTA BL, no w/r/c Musc: Full ROM, no deformity, no significant swelling of the left foot including the toes, there is mild erythema of the proximal dorsal aspect of the fourth toe that slightly extends into the distal dorsal of the foot, there is a wound in between the 4th and 5th toe-clean without necrosis/purulence/crepitus/fluctuance/odor, DP/PT pulses +2 bilaterally, good capillary refill, toes and foot nontender compartments soft Skin: Warm, dry Neuro: Alert, oriented, grossly intact, sensation intact Psych: Cooperative, appropriate mood and affect [facility] Medical History Subconjunctival hemorrhage of left eye Atypical atrial flutter Secondary pulmonary arterial hypertension Osteoarthritis Hypothyroidism Hypertrophy of prostate without urinary obstruction Bradycardia Right bundle branch block (RBBB) Essential (primary) hypertension History of hyperlipidemia Nonobstructive atherosclerosis of coronary artery Nonrheumatic mitral (valve) insufficiency Home Medications ?Medication ?Instructions ?Recorded ?Last Taken ?Type levothyroxine 88 mcg tablet 88 mcg PO DAILY 04/13/15 04/21/15 History 88 MCG warfarin 4 mg tablet See Rx Instructions PO DAILY 10/23/20 Unknown History tamsulosin 0.4 mg capsule 0.4 mg PO QHS 08/22/22 Unknown History metoprolol succinate 50 mg 50 mg PO DAILY #90 tabs 12/21/23 Unknown Rx tablet,extended release 24 hr calcium glucarate 500 mg capsule 1 tab-cap PO BID 10/22/24 Unknown History dupilumab 300 mg/2 mL subcutaneous 300 mg subcut Q2W 10/22/24 Unknown History pen injector ([employer]) glucosamine HCl 500 mg tablet 500 mg PO BID 10/22/24 Unknown History Allergy/AdvReac Type Severity Reaction Status Date / Time No Known Allergies Allergy Verified 10/22/24 09:30 Family History Mother Heart disease Father Cancer leukemia Surgical History History of reverse total replacement of right shoulder joint H/O bilateral inguinal hernia repair History of cardioversion (12/13/12) History of left heart catheterization (02/23/07) History of mitral valve repair (02/28/07) Social History (Updated 11/15/24 @ 11:18 by Skylar Milian) housing: house Smoking Status: Never smoker alcohol intake: never substance use type: does not use caffeine: No EXAM Physical Exam Const Vital Signs: 11/15/24 11:02 11/15/24 11:29 11/15/24 12:03 Temperature 97.9 F 98.3 F 98 F Temperature Source Oral Oral Oral Pulse Rate 48 L 42 L 39 L Respiratory Rate 16 18 16 Blood Pressure 129/57 H 133/87 H 158/67 H Blood Pressure Mean 81 102 97 Pulse Ox 99 98 98 Oxygen Delivery Method Room Air Room Air 11/15/24 13:00 Temperature 98.6 F Temperature Source Oral Pulse Rate 43 L Respiratory Rate 18 Blood Pressure 142/70 H Blood Pressure Mean 94 Pulse Ox 99 Oxygen Delivery Method Room Air MDM MDM MDM Narrative Medical decision making narrative: 83-year-old gentleman with past medical history of atrial flutter/fibrillation on warfarin, hypothyroidism, BPH, HTN presents for evaluation of left fourth toe infection. Patient was sent in by PCP. PCP was concerned for cellulitis and prescribed doxycycline. Wanted the patient evaluated in the ER to rule out osteomyelitis. Physical exam is consistent with mild cellulitis and a noninfectious wound. However osteomyelitis and bacteremia in the differential. Infectious labs ordered including blood culture and x-ray of the foot. Vital signs unremarkable except for bradycardia. Patient is on metoprolol. Asymptomatic from the bradycardia. Patient became bradycardic into the upper 30s. Got EKG. EKG shows bradycardia with a heart rate of 42. Atrial fibrillation with known right bundle branch block. Patient has known persistent atrial fibrillation. He is on metoprolol. I do not have a previous EKG to compare to. He is asymptomatic suspect it is secondary to his metoprolol. CBC with pancytopenia. Leukopenia and thrombocytopenia appear to be new from 2023. Baseline anemia. ESR unremarkable. CRP unremarkable. BMP unremarkable. Lactic acid unremarkable. X-ray of the foot was personally viewed interpreted by me, ED physician. No fracture or dislocation. Per radiology no osseous abnormality. Given that patient was sent here by his primary care physician, will touch base. He was consulted. I spoke with his CIVIL TECHNICIAN. She was made aware of the patient's pancytopenia as well as his asymptomatic bradycardia. May need readjustment of his metoprolol despite him being asymptomatic. They confirmed understanding they will arrange a follow-up appointment. They were made aware that patient will discharge home. He is to continue the doxycycline and follow-up with the byproduct engineer as well as them for his cellulitis. Patient stable to discharge home. Impression: 1. Left fourth toe cellulitis 2. Left fourth toe wound 3. Pancytopenia 4. Asymptomatic bradycardia with persistent atrial fibrillation and rate controlled on beta-dipak Lab Data Labs: Laboratory Results - last 24 hr 11/15/24 11:39 WBC 4.3 L RBC 3.80 L Hgb 12.3 L Hct 35.6 L MCV 93.7 MCH 32.4 H MCHC 34.6 RDW Std Deviation 47.5 H RDW Coeff of Lexus 13.9 Plt Count 142 L MPV 10.3 Immature Gran % (Auto) 1.600 H Neut % (Auto) 63.4 Lymph % (Auto) 24.0 [place]ink[place] % (Auto) 8.5 Eos % (Auto) 2.3 Baso % (Auto) 0.2 Absolute Neuts (auto) 2.7 Absolute Lymphs (auto) 1.04 Nucleated RBC % 0 ESR 17 Sodium 140 Potassium 4.4 Chloride 105 Carbon Dioxide 24.1 Anion Gap 11 BUN 31 H Creatinine 1.04 Estim Creat Clear Calc 52.61 Est GFR (MDRD) Non-Af 70 BUN/Creatinine Ratio 29.4 H Glucose 88 Lactic Acid < 1.0 Calcium 9.8 C-React Prot Ext Range < 3.00 Radiography Diagnostic Testing: Clinical Impression(s) from Imaging Studies Foot X-Ray 11/15/24 11:40 IMPRESSION: SOFT TISSUE SWELLING. NO ACUTE OSSEOUS ABNORMALITY IDENTIFIED. Reading Location: [facility] Discharge Plan Triage Chief Complaint: Wound ED Provider: Pio Grimes Dx/Rx/DC Orders Clinical Impression: Cellulitis of left toe Instructions: Cellulitis Dc Prescriptions: No Action tamsulosin 0.4 mg capsule 0.4 mg PO QHS calcium glucarate 500 mg capsule 1 tab-cap PO BID Dupixent Pen 300 mg/2 mL pen injector 300 mg subcut Q2W glucosamine HCl 500 mg tablet 500 mg PO BID Rx Instructions: administer with meals levothyroxine 88 MCG tablet 88 mcg PO DAILY Patient Comments: thyroid warfarin 4 mg tablet See Rx Instructions PO DAILY Rx Instructions: 2 mg on Mondays and Fridays, 4 mg all other day or as directed for dose changes PO daily; Managed by Dr. Jaramillo metoprolol succinate 50 mg tablet extended release 24 hr 50 mg PO DAILY Qty: 90 3RF Primary Care Provider: Nic Castro Referrals: Nic Castro MD [Primary Care Provider] - 3-5 Days Activity Restrictions/Additional Instructions: Your labs show pancytopenia. I talked to your primary care physician about this. They will follow-up for this. Make sure that you follow-up for your cellulitis. Take all of the antibiotics, the doxycycline that was prescribed to you. Follow-up with primary care physician as well as the byproduct engineer they wanted you to see. Return back to the ED if symptoms change or worsen. Print Language: Cymraes Disposition Disposition: Home, Self Care
--- NOTE | 2024-11-15 11:40 | RAD_ITS ---
PROCEDURE: FOOT MIN 3 VIEWS 11/15/2024 REASON FOR EXAM: 4TH TOE INFECTION, ASSESS FOR OSTEO TECHNIQUE: FOOT MIN 3 VIEWS COMPARISON: None. FINDINGS: BONES: No acute fracture or focal osseous lesion. The cortex appears distinct without evidence of osseous destruction or periosteal reaction. Small achilles tendon insertional enthesophyte. JOINTS: No dislocation. Mild multifocal arthritic changes. SOFT TISSUES: Mild swelling of the 4th toe. Vascular calcifications noted. RAD/Foot min 3 Views IMPRESSION: SOFT TISSUE SWELLING. NO ACUTE OSSEOUS ABNORMALITY IDENTIFIED. Reading Location: [id number]
[2024-11-15 12:03] VITALS: BP 158/67; PULSE 39; RESP 16; TEMP 36.6; O2SAT 98
--- NOTE | 2024-11-15 12:09 | ED.RN ---
this rn called for ekg d/t low hr, told to cancel by dr. pablo
[2024-11-15 12:10] LABS: Hematocrit 35.6 % (40-54); Hemoglobin 12.3 g/dL (13.0-16.5); Immature Granulocytes Count 0.070 X10^3/uL (0.0-0.0); Mean Corp Hgb Conc 34.6 g/dL (32-36); Mean Corpuscular Volume 93.7 fL (80-94); Mean Platelet Vol. 10.3 fl (6.2-12.0); NRBC Flagged by Analyzer 0 % (0-5); Platelet Count 142 K/mm3 (150-450); RBC Distribution Width CV 13.9 % (11.6-14.6); RBC Distribution Width SD 47.5 fl (35.1-43.9); Red Blood Count 3.80 M/mm3 (4.6-6.2); White Blood Count 4.3 K/mm3 (4.4-11.0)
[2024-11-15 12:30] LABS: Anion Gap 11 (5-15); BUN 31 mg/dL (4-19); BUN/Creat Ratio 29.4 RATIO (10-20); Calcium,Total 9.8 mg/dL (7.6-11.0); Carbon Dioxide 24.1 mmol/L (21.0-32.0); Chloride 105 mmol/L (98-108); Estimated Creatinine Clearance 52.61 ml/min (50-250); Glucose 88 mg/dL (70-99); Potassium 4.4 mmol/L (3.3-5.1)
--- NOTE | 2024-11-15 12:30 | EKG12_ITS ---
Test Reason : cherelle Blood Pressure : */* mmHG Vent. Rate : 42 BPM Atrial Rate : * BPM P-R Int : * ms QRS Dur : 166 ms QT Int : 518 ms P-R-T Axes : * -57 -6 degrees QTcB Int : 432 ms Atrial fibrillation with slow ventricular response Right bundle branch block Left anterior fascicular block Bifascicular block Abnormal ECG Confirmed by NATHANIEL JOHNSON MD ([id number]), stage set designer ARLIN ADRIAN ([id number]) on 11/18/2024 7:04:37 AM Referred By: Confirmed By: NATHANIEL JOHNSON MD
[2024-11-15 12:40] LABS: CRP < 3.00 mg/L (0.0-3.0)
[2024-11-15 13:00] VITALS: BP 142/70; PULSE 43; RESP 18; TEMP 37; O2SAT 99
[2024-11-15 14:31] VITALS: BP 142/70; PULSE 43; RESP 18; TEMP 37; O2SAT 99
== END 2024-11-15 14:40 | disposition home or self-care (01) ==
PROVIDERS: Emergency Provider Surgery; PCP Family Medicine; Visit Provider Surgery
DX: L03.032 Cellulitis of left toe (principal); D61.818 Other pancytopenia; I48.19 Other persistent atrial fibrillation; E78.5 Hyperlipidemia, unspecified; R00.1 Bradycardia, unspecified; I25.10 Atherosclerotic heart disease of native coronary artery without angina pectoris; Z79.01 Long term (current) use of anticoagulants; E03.9 Hypothyroidism, unspecified; Z79.890 Hormone replacement therapy; Z96.611 Presence of right artificial shoulder joint; I10 Essential (primary) hypertension
CPT/HCPCS: 73630; 80048; 83605; 85025; 85652; 86140; 87040; 93005; 99283; A4216